=== PATIENT | male | born 1990 | race Caucasian/White ===

== ENCOUNTER 2018-01-24 18:18 | Emergency (ER) | payer MEDICAID ==
[~2018-01-24] VITALS: Ht 177.8 cm; Wt 80.0 kg
[2018-01-24] MEDS ORDERED: BACITRACIN ZINC OINT UDPKT TOP ONE (21:30)
[2018-01-24] MEDS ORDERED: LIDOCAINE HCL 1% 20ML VIAL (Pyxis) INJ MC ONE (21:30)
[2018-01-24] MEDS ORDERED: LIDOCAINE HCL/PF 1% 10 MG/ML 5ML VIAL IJ NR (22:00)
[2018-01-25 00:02] VITALS: BP 138/90
== END 2018-01-25 00:05 | disposition home or self-care (01) ==
LOC: ER 18:18
DX: S09.8XXA Other specified injuries of head, initial encounter (principal); S01.119A Laceration without foreign body of unspecified eyelid and periocular area, initial encounter; F17.200 Nicotine dependence, unspecified, uncomplicated; Y08.89XA Assault by other specified means, initial encounter; Y93.55 Activity, bike riding; Y92.9 Unspecified place or not applicable
CPT/HCPCS: 12013; 70450; 99284; J3490; X7700; Z7610

== ENCOUNTER 2018-01-27 19:13 | Emergency (ER) | payer MEDICAID ==
[~2018-01-27] VITALS: Ht 170.2 cm; Wt 78.0 kg
[2018-01-27 19:27] VITALS: BP 149/111
== END 2018-01-27 20:30 | disposition left against medical advice (07) ==
LOC: ER 19:13
DX: Z53.21 Procedure and treatment not carried out due to patient leaving prior to being seen by health care provider (principal)
CPT/HCPCS: J7030

== ENCOUNTER 2020-06-20 11:47 | Emergency (ER) | payer SELFPAY ==
[~2020-06-20] VITALS: Ht 172.7 cm; Wt 86.0 kg
[2020-06-20 14:03] VITALS: BP 165/98
== END 2020-06-20 14:08 | disposition home or self-care (01) ==
LOC: ER 11:47
DX: S00.83XA Contusion of other part of head, initial encounter (principal); S80.12XA Contusion of left lower leg, initial encounter; S80.11XA Contusion of right lower leg, initial encounter; S40.022A Contusion of left upper arm, initial encounter; S40.021A Contusion of right upper arm, initial encounter; S50.311A Abrasion of right elbow, initial encounter; Y00.XXXA Assault by blunt object, initial encounter; Y93.89 Activity, other specified; Y92.488 Other paved roadways as the place of occurrence of the external cause; F12.90 Cannabis use, unspecified, uncomplicated; F15.10 Other stimulant abuse, uncomplicated; R03.0 Elevated blood-pressure reading, without diagnosis of hypertension
CPT/HCPCS: 99281